=== PATIENT | female | born 1965 | race Caucasian/White ===

== ENCOUNTER → 2021-02-26 | Outpatient (CLI) | payer BC, OTHER | LOC: HEART 5 09:00 | DX: M34.0 Progressive systemic sclerosis (principal) | CPT/HCPCS: 94010 ==

== ENCOUNTER → 2021-05-08 | Outpatient (CLI) | payer BC | LOC: EXRD 14:44 | DX: M54.5 Low back pain (principal); Z79.899 Other long term (current) drug therapy; M47.816 Spondylosis without myelopathy or radiculopathy, lumbar region | CPT/HCPCS: 72070; 72100 ==

== ENCOUNTER → 2021-05-28 | Outpatient (CLI) | payer BC | LOC: ECHO 12:03 | DX: R06.02 Shortness of breath (principal); M34.0 Progressive systemic sclerosis; M34.9 Systemic sclerosis, unspecified | CPT/HCPCS: ECHO; 93306 ==

== ENCOUNTER → 2021-08-07 | Day surgery (SDC) | payer BC ==
[~2021-08-07] MED LIST: NIFEDIPINE ER60 M1 PO; PLAQUENIL 200200 MG PO; PROTONIX40 MG PO; ST. JOSEPH ASPI81 M1 PO; VITAMIN B-12500 MCG PO; VITAMIN D21250 MCG PO
== END | disposition home or self-care (01) ==
LOC: OR 07:03
DX: K22.719 Barrett's esophagus with dysplasia, unspecified (principal); K21.9 Gastro-esophageal reflux disease without esophagitis; M34.9 Systemic sclerosis, unspecified; I73.00 Raynaud's syndrome without gangrene; Z79.82 Long term (current) use of aspirin; Z79.899 Other long term (current) drug therapy; Z88.5 Allergy status to narcotic agent; F17.200 Nicotine dependence, unspecified, uncomplicated
CPT/HCPCS: J2704; J3010; J7040